=== PATIENT | female | born 1990 ===

== ENCOUNTER 2017-06-29 20:07 | Inpatient (IN) | payer OTHER ==
[2017-06-29] VITALS (7 sets, daily range): BP systolic 126–137; BP diastolic 63–79; PULSE 86–104; TEMP 98.6–98.8
[~2017-06-29] VITALS: Ht 175.3 cm; Wt 111.4 kg
[~2017-06-29 20:07] MED LIST: MOTRIN 800800 MG/TAB PO; PRENATAL1 TA7 PO
[2017-06-29] MEDS ORDERED: PROBIOTIC FORMU1 CAP PO (20:29)
[2017-06-29 23:02] LABS: BASO % 0.3 % (0.0-2.0); EOS # 0.1 (0.0-0.7); EOS % 0.6 % (0-4.0); GRAN # 11.1 (1.4-6.5); GRAN % 74.4 % (42.2-75.2); LYMPH # 2.6 (1.2-3.4); LYMPH % 17.6 % (20.0-51.0); MEAN CELL VOLUME 82 fl (80.0-100.0); MEAN CORPUSCULAR HGB CONC 32 g/dl (33.0-37.0); MEAN PLATELET VOLUME 9.7 fl (7.4-10.4); MONO % 6.4 % (1.7-9.3); PLATELET COUNT 311 K/mm3 (130-400); RED BLOOD COUNT 4.17 M/mm3 (4.10-5.30); WHITE BLOOD COUNT 14.9 K/mm3 (4.8-10.8)
[2017-06-29 23:06] LABS: HEMATOCRIT 34.2 % (37.0-47.0); MEAN CORPUSCULAR HEMOGLOBIN 26 pg (27.0-31.0)
[2017-06-30] VITALS (18 sets, daily range): BP systolic 114–143; BP diastolic 56–72; PULSE 4–141; TEMP 97.4–98.9
[2017-07-01 07:00] VITALS: BP 114/74; PULSE 76; TEMP 98.1
[2017-07-01] MEDS ORDERED: IBU600 MG PO (08:30)
== END 2017-07-01 11:41 | disposition home or self-care (01) | DRG 775 ==
LOC: LDRO 20:07 → LDR 21:08 → OB 21:08
PROVIDERS: Obstetrics & Gynecology
PROC: 10E0XZZ Delivery of Products of Conception, External Approach (ICD-10-PCS; principal; 2017-06-30)
DX: O42.013 Preterm premature rupture of membranes, onset of labor within 24 hours of rupture, third trimester (principal); O69.81X0 Labor and delivery complicated by cord around neck, without compression, not applicable or unspecified; O70.0 First degree perineal laceration during delivery; Z3A.36 36 weeks gestation of pregnancy; Z37.0 Single live birth
CPT/HCPCS: J1200; J2210; J2590; J2795; J7120

== ENCOUNTER → 2018-02-26 | Outpatient (CLI) | payer OTHER ==
[~2018-02-26] MED LIST changes: +IBU600 MG PO; +PROBIOTIC FORMU1 CAP PO
== END ==
LOC: MC.RAD 08:46
DX: N63.20 Unspecified lump in the left breast, unspecified quadrant (principal)